=== PATIENT | male | born 1975 | race Hispanic/Latino ===

== ENCOUNTER 2018-02-19 21:56 | Inpatient (IN) | payer OTHER ==
[~2018-02-19] VITALS: Ht 182.9 cm; Wt 119.3 kg
[2018-02-19] MEDS ORDERED: ONDANSETRON HCL INJ 2 MG/ML VIAL IV STA (23:36)
[2018-02-19] MEDS ORDERED: MORPHINE SULFATE 5 MG/ML VIAL IV ONE (23:45)
[2018-02-19] MEDS ORDERED: SODIUM CHLORIDE 0.9% 1000ML 1,000 ML IV SCH (23:45)
[2018-02-20] VITALS (7 sets, daily range): BP systolic 108–134; BP diastolic 66–85
--- NOTE | 2018-02-20 01:40 | Diagnostic Imaging Report ---
EXAM: CT ABD/PEL WITH CONTRAST-HOPD DATE: 02/20/2018 12:00 AM INDICATION: Right abdominal and epigastric pain COMPARISON: None TECHNIQUE: The abdomen and pelvis were scanned using a multidetector helical scanner. Coronal and sagittal reformations were obtained. CT low dose techniques were utilized, as applicable. IV Contrast: 100 ml Isovue 300/370 FINDINGS: LOWER THORAX: Scattered linear atelectasis/scarring LIVER/BILIARY: Hepatic steatosis. No masses. No ductal dilatation. GALLBLADDER: Status post cholecystectomy SPLEEN: Unremarkable PANCREAS: Fatty atrophy. Marked inflammatory changes and peripancreatic fluid centered about the uncinate process and third portion of the duodenum extending down the right retroperitoneum into the pelvis ADRENALS: No nodules KIDNEYS: No suspicious renal masses. No hydronephrosis. GI TRACT: No wall thickening or evidence of obstruction. Normal appendix. VESSELS: Unremarkable PERITONEUM/RETROPERITONEUM: See above. No free air. LYMPH NODES: No lymphadenopathy REPRODUCTIVE ORGANS/BLADDER: Unremarkable SOFT TISSUES: Fat-containing periumbilical hernia. BONES: No suspicious bone lesions. IMPRESSION: Findings most likely secondary to acute pancreatitis centered about the uncinate process with free fluid extending down the right retroperitoneum. Signed by: Dr Dinah Walsh MD on 02/20/2018 1:37 AM
[2018-02-20] MEDS: SODIUM CHLORIDE 0.9% 1000ML 1,000 ML IV SCH ×8 (02:30→22:15)
[2018-02-20] MEDS ORDERED: INSULIN REGULAR, HUMAN 100 UNIT/1 ML 3ML VIAL SQ ONE (02:30)
[2018-02-20] MEDS ORDERED: DEXTROSE 50% SYRINGE 50 ML IV PRN (02:45)
[2018-02-20] MEDS ORDERED: ONDANSETRON HCL INJ 2 MG/ML VIAL IV PRN (02:45)
[2018-02-20] MEDS ORDERED: SODIUM CHLORIDE FLUSH 10 ML SYR INJ PRN (02:45)
--- OUTSIDE RECORDS SUMMARY | 2018-02-20 02:49 | XMS REPORT ---
Author [facility] Address Unknown Phone Unavailable Care Team Providers Care Casting Machine Set Up Operator Name Role Phone uRla PARISH Unavailable Unavailable Problems This patient has no known problems. Allergies, Adverse Reactions, Alerts This patient has no known allergies or adverse reactions. Medications This patient has no known medications. Results Test Description Test Time Test Comments Text Results Atomic Results Result Comments CT ABD/PEL WITH CONTRAST-HOPD 2018-02-20 01:32:00 [place] [address] Patient Name: LOUIE DILL MR #: [id number] : 1975 Age/Sex: 42/M Req #: [id number] Adm Physician: Ordered by: JENIFER PARISH MD Report #: [id number] Location: [facility] Room/Bed: Procedure: [id number] HOPD/CT ABD/PEL WITH CONTRAST-HOPD Exam Date: 02/20/18 Exam Time: 0105 REPORT STATUS: Signed EXAM: CT ABD/PEL WITH CONTRAST-HOPD DATE: 02/20/2018 12:00 AM INDICATION: Right abdominal and epigastric pain COMPARISON: None TECHNIQUE: The abdomen and pelvis were scanned using a multidetector helical scanner. Coronal and sagittal reformations were obtained. CT low dose techniques were utilized, as applicable. IV Contrast: 100 ml Isovue 300/370 FINDINGS: LOWER THORAX: Scattered linear atelectasis/scarring LIVER/BILIARY: Hepatic steatosis. No masses. No ductal dilatation. GALLBLADDER: Status post cholecystectomy SPLEEN: Unremarkable PANCREAS: Fatty atrophy. Marked inflammatory changes and peripancreatic fluid centered about the uncinate process and third portion of the duodenum extending down the right retroperitoneum into the pelvis ADRENALS: No nodules KIDNEYS: No suspicious renal masses. No hydronephrosis. GI TRACT: No wall thickening or evidence of obstruction. Normal appendix. VESSELS: Unremarkable PERITONEUM/RETROPERITONEUM: See above. No free air. LYMPH NODES: No lymphadenopathy REPRODUCTIVE ORGANS/BLADDER: Unremarkable SOFT TISSUES: Fat-containing periumbilical hernia. BONES: No suspicious bone lesions. IMPRESSION: Findings most likely secondary to acute pancreatitis centered about the uncinate process with free fluid extending down the right retroperitoneum. Signed by: Dr Judy Walsh MD on 02/20/2018 1:37 AM Dictated By: JUDY WALSH MD 6 Transcribed By: LAVONNE on 02/20/18136 COPY TO: JENIFER PARISH MD
[2018-02-20] MEDS ORDERED: MORPHINE SULFATE 2 MG/ML SYR IV PRN (03:00)
[2018-02-20] MEDS ORDERED: SODIUM CHLORIDE 0.9% 1000ML 1,000 ML IV ONE (03:00)
[2018-02-20] MEDS ORDERED: MORPHINE SULFATE INJ 4 MG/ML INJ IV ONE (03:00)
[2018-02-20] MEDS: INSULIN REGULAR, HUMAN 100 UNIT/1 ML 3ML VIAL SQ SCH ×4 (09:13→21:00)
[2018-02-20 09:22] LABS: BASOPHILS % 0.4 % (0.0-1.0); EOSINOPHILS # (AUTO) 0.2 (0.0-0.4); EOSINOPHILS % 3.4 % (0.0-6.0); HEMATOCRIT 38.3 % (38.2-49.6); HEMOGLOBIN 12.9 g/dL (14.0-18.0); LYMPHOCYTES # (AUTO) 1.7 (1.0-3.2); MEAN CORPUSCULAR HEMOGLOBIN 27.9 pg (28-32); MEAN CORPUSCULAR HGB CONC 33.7 g/dL (31-35); MEAN CORPUSCULAR VOLUME 82.9 fL (81-99); MONOCYTES # (AUTO) 0.5 (0.2-0.8); MONOCYTES % 7.3 % (4.4-11.3); NEUTROPHILS # (AUTO) 4.2 (2.1-6.9); NEUTROPHILS % 63.2 % (38.7-80.0); PLATELET COUNT 172 x10e3/uL (140-360); RED BLOOD COUNT 4.62 x10e6/uL (4.3-5.7); RED CELL DISTRIBUTION WIDTH 13.6 % (11.7-14.4)
[2018-02-20 09:35] LABS: ANION GAP 11.4 mmol/L (8-16); BLOOD UREA NITROGEN 8 mg/dL (7-26); BUN/CREATININE RATIO 10 (6-25); CALCIUM 9.1 mg/dL (8.4-10.2); CARBON DIOXIDE 27 mmol/L (22-29); CHLORIDE 99 mmol/L (98-107); CREATININE, SERUM 0.82 mg/dL (0.72-1.25); EST GLOMERULAR FILTRATION RATE > 60 ML/MIN (60-); GLUCOSE 247 mg/dL (74-118); MAGNESIUM 1.6 MG/DL (1.3-2.1); POTASSIUM 3.4 mmol/L (3.5-5.1); SODIUM 134 mmol/L (136-145)
[2018-02-20] MEDS: PANTOPRAZOLE SOD 40 MG TABEC PO SCH (09:45)
[2018-02-20 09:58] LABS: FREE T4 (FREE THYROXINE) 1.04 ng/dL (0.9-1.8)
[2018-02-20] MEDS ORDERED: MORPHINE SULFATE INJ 4 MG/ML INJ IV PRN (10:00)
[2018-02-20 10:24] LABS: B-TYPE NATRIURETIC PEPTIDE2 < 10.0 pg/mL (0-100)
[2018-02-20] MEDS: ACETAMINOPHEN 325 MG TAB PO PRN (16:25)
[2018-02-20 22:33] LABS: CLARITY,URINE CLEAR (CLEAR); COLOR,URINE YELLOW (YELLOW); LEUKOCYTE ESTERASE ,URINE NEGATIVE (NEGATIVE); NITRITE,URINE NEGATIVE (NEGATIVE); PROTEIN,URINE DIPSTICK 2+ (NEGATIVE)
[2018-02-20 22:34] LABS: BILIRUBIN,URINE NEGATIVE (NEGATIVE); KETONES,URINE 1+ (NEGATIVE); URINE UROBILINOGEN 1 mg/dL (0.2 - 1)
[2018-02-20 22:39] LABS: BACTERIA,URINE MANY /HPF; EPITHELIAL CELLS,URINE RARE /LPF; WBC,URINE (MAN) 0-5 /HPF (0-5)
[2018-02-21] VITALS (8 sets, daily range): BP systolic 109–134; BP diastolic 60–84
[2018-02-21] MEDS: SODIUM CHLORIDE 0.9% 1000ML 1,000 ML IV SCH ×4 (03:49→20:46)
[2018-02-21 05:23] LABS: BASOPHILS % 0.5 % (0.0-1.0); EOSINOPHILS # (AUTO) 0.2 (0.0-0.4); EOSINOPHILS % 3.3 % (0.0-6.0); HEMATOCRIT 38.7 % (38.2-49.6); HEMOGLOBIN 12.9 g/dL (14.0-18.0); LYMPHOCYTES # (AUTO) 1.7 (1.0-3.2); LYMPHOCYTES % 27.3 % (18.0-39.1); MEAN CORPUSCULAR HEMOGLOBIN 28.1 pg (28-32); MEAN CORPUSCULAR HGB CONC 33.3 g/dL (31-35); MEAN CORPUSCULAR VOLUME 84.3 fL (81-99); MONOCYTES # (AUTO) 0.5 (0.2-0.8); MONOCYTES % 7.1 % (4.4-11.3); NEUTROPHILS # (AUTO) 3.9 (2.1-6.9); NEUTROPHILS % 60.9 % (38.7-80.0); PLATELET COUNT 169 x10e3/uL (140-360); RED BLOOD COUNT 4.59 x10e6/uL (4.3-5.7); RED CELL DISTRIBUTION WIDTH 13.5 % (11.7-14.4)
[2018-02-21 05:41] LABS: ANION GAP 11.2 mmol/L (8-16); BLOOD UREA NITROGEN 6 mg/dL (7-26); BUN/CREATININE RATIO 8 (6-25); CALCIUM 8.9 mg/dL (8.4-10.2); CARBON DIOXIDE 25 mmol/L (22-29); CHLORIDE 102 mmol/L (98-107); CREATININE, SERUM 0.77 mg/dL (0.72-1.25); EST GLOMERULAR FILTRATION RATE > 60 ML/MIN (60-); GLUCOSE 178 mg/dL (74-118); LIPASE 93 U/L (8-78); MAGNESIUM 1.8 MG/DL (1.3-2.1); POTASSIUM 3.2 mmol/L (3.5-5.1); SODIUM 135 mmol/L (136-145)
[2018-02-21 06:37] LABS: CHOL/HDL RATIO 15.4 (3.9-4.7); CHOLESTEROL 262 MD/DL (0-199); HDL CHOLESTEROL 17 MG/DL (40-60); TRIGLYCERIDES 435 MG/DL (0-149)
[2018-02-21] MEDS: PANTOPRAZOLE SOD 40 MG TABEC PO SCH (09:54)
[2018-02-21] MEDS: INSULIN REGULAR, HUMAN 100 UNIT/1 ML 3ML VIAL SQ SCH ×4 (10:10→21:00)
[2018-02-21 10:27] LABS: OCCULT BLOOD STOOL NEGATIVE (NEGATIVE)
[2018-02-21 13:27] LABS: CLARITY,URINE SL CLOUDY (CLEAR); COLOR,URINE YELLOW (YELLOW); KETONES,URINE 1+ (NEGATIVE); LEUKOCYTE ESTERASE ,URINE NEGATIVE (NEGATIVE); NITRITE,URINE NEGATIVE (NEGATIVE); PROTEIN,URINE DIPSTICK NEGATIVE (NEGATIVE); URINE UROBILINOGEN 1 mg/dL (0.2 - 1)
[2018-02-21 13:28] LABS: BILIRUBIN,URINE NEGATIVE (NEGATIVE)
[2018-02-21 13:42] LABS: EPITHELIAL CELLS,URINE FEW /LPF; RBC,URINE 0-5 /HPF (0-5)
[2018-02-21 13:56] LABS: C DIFFICILE TOXIN A&B AMP PROB NEGATIVE (NEGATIVE)
[2018-02-21] MEDS: ACETAMINOPHEN 325 MG TAB PO PRN (15:47)
[2018-02-21] MEDS ORDERED: SIMETHICONE 80 MG CHEW PO PRN (18:45)
[2018-02-22] VITALS (8 sets, daily range): BP systolic 121–130; BP diastolic 62–84
[2018-02-22] MEDS: SODIUM CHLORIDE 0.9% 1000ML 1,000 ML IV SCH ×4 (01:45→23:15)
[2018-02-22 05:37] LABS: BASOPHILS % 0.5 % (0.0-1.0); EOSINOPHILS # (AUTO) 0.2 (0.0-0.4); EOSINOPHILS % 3.4 % (0.0-6.0); HEMATOCRIT 38.7 % (38.2-49.6); LYMPHOCYTES # (AUTO) 1.6 (1.0-3.2); LYMPHOCYTES % 24.8 % (18.0-39.1); MEAN CORPUSCULAR HEMOGLOBIN 27.9 pg (28-32); MEAN CORPUSCULAR HGB CONC 33.6 g/dL (31-35); MONOCYTES # (AUTO) 0.4 (0.2-0.8); MONOCYTES % 6.9 % (4.4-11.3); NEUTROPHILS % 63.4 % (38.7-80.0); PLATELET COUNT 192 x10e3/uL (140-360); RED BLOOD COUNT 4.66 x10e6/uL (4.3-5.7); RED CELL DISTRIBUTION WIDTH 13.4 % (11.7-14.4)
[2018-02-22 05:54] LABS: ANION GAP 14.3 mmol/L (8-16); BLOOD UREA NITROGEN 5 mg/dL (7-26); BUN/CREATININE RATIO 7 (6-25); CALCIUM 9.1 mg/dL (8.4-10.2); CARBON DIOXIDE 23 mmol/L (22-29); CHLORIDE 103 mmol/L (98-107); CREATININE, SERUM 0.74 mg/dL (0.72-1.25); EST GLOMERULAR FILTRATION RATE > 60 ML/MIN (60-); GLUCOSE 140 mg/dL (74-118); LIPASE 93 U/L (8-78); MAGNESIUM 1.7 MG/DL (1.3-2.1); POTASSIUM 3.3 mmol/L (3.5-5.1); SODIUM 137 mmol/L (136-145)
[2018-02-22] MEDS: INSULIN REGULAR, HUMAN 100 UNIT/1 ML 3ML VIAL SQ SCH ×4 (07:30→20:52)
[2018-02-22] MEDS: PANTOPRAZOLE SOD 40 MG TABEC PO SCH (08:50)
[2018-02-22] MEDS ORDERED: POTASSIUM CHLORIDE 20MEQ/100ML 100 ML IV ONE (12:15)
[2018-02-22] MEDS ORDERED: ACETAMINOPHEN 325 MG TAB PO PRN (12:30)
[2018-02-22] MEDS ORDERED: HYDRALAZINE HCL 20 MG/ML VIAL IV PRN (12:30)
[2018-02-22] MEDS: CEFTRIAXONE SOD 1 GM VIAL IV SCH (14:45)
[2018-02-23] VITALS: BP 135/82
[2018-02-23] MEDS: CEFTRIAXONE SOD 1 GM VIAL IV SCH ×2 (00:15→12:31)
[2018-02-23 04:00] VITALS: BP 125/73
[2018-02-23 04:21] LABS: BASOPHILS % 0.8 % (0.0-1.0); EOSINOPHILS # (AUTO) 0.2 (0.0-0.4); EOSINOPHILS % 4.1 % (0.0-6.0); HEMATOCRIT 38.1 % (38.2-49.6); HEMOGLOBIN 12.9 g/dL (14.0-18.0); LYMPHOCYTES # (AUTO) 1.7 (1.0-3.2); LYMPHOCYTES % 31.3 % (18.0-39.1); MEAN CORPUSCULAR HEMOGLOBIN 27.9 pg (28-32); MEAN CORPUSCULAR HGB CONC 33.9 g/dL (31-35); MEAN CORPUSCULAR VOLUME 82.3 fL (81-99); MONOCYTES # (AUTO) 0.4 (0.2-0.8); MONOCYTES % 7.2 % (4.4-11.3); NEUTROPHILS % 55.7 % (38.7-80.0); PLATELET COUNT 188 x10e3/uL (140-360); RED BLOOD COUNT 4.63 x10e6/uL (4.3-5.7); RED CELL DISTRIBUTION WIDTH 13.2 % (11.7-14.4)
[2018-02-23 04:41] LABS: ANION GAP 13.6 mmol/L (8-16); BLOOD UREA NITROGEN < 5 mg/dL (7-26); CALCIUM 9.3 mg/dL (8.4-10.2); CARBON DIOXIDE 25 mmol/L (22-29); CHLORIDE 105 mmol/L (98-107); CREATININE, SERUM 0.73 mg/dL (0.72-1.25); EST GLOMERULAR FILTRATION RATE > 60 ML/MIN (60-); GLUCOSE 140 mg/dL (74-118); MAGNESIUM 1.6 MG/DL (1.3-2.1); POTASSIUM 3.6 mmol/L (3.5-5.1); SODIUM 140 mmol/L (136-145)
[2018-02-23 04:42] LABS: BUN/CREATININE RATIO 7 (6-25)
[2018-02-23] MEDS: SODIUM CHLORIDE 0.9% 1000ML 1,000 ML IV SCH ×2 (05:30→08:45)
[2018-02-23] MEDS: INSULIN REGULAR, HUMAN 100 UNIT/1 ML 3ML VIAL SQ SCH ×2 (07:30→12:30)
[2018-02-23 08:00] VITALS: BP 132/75
[2018-02-23] MEDS: PANTOPRAZOLE SOD 40 MG TABEC PO SCH (08:45)
[2018-02-23 09:59] VITALS: BP 125/73
[2018-02-23] MEDS ORDERED: METFORMIN HCL500 MG PO (10:25)
[2018-02-23] MEDS ORDERED: GLIPIZIDE5 MG PO (10:25)
[2018-02-23 12:00] VITALS: BP 152/88
[2018-02-23 16:00] VITALS: BP 130/81
--- NOTE | 2018-02-24 03:25 | Discharge Summary ---
ADMISSION DIAGNOSES 1. Pancreatitis. 2. Gastroesophageal reflux disease. 3. Hematuria with dysuria. 4. Black stools. 5. Hyperglycemia without history of diabetes. 6. Obesity. 7. Tachycardia. DISCHARGE DIAGNOSES 1. Pancreatitis. 2. Gastroesophageal reflux disease. 3. Hematuria with dysuria. 4. Black stools. 5. Hyperglycemia without history of diabetes. 6. Obesity. 7. Tachycardia. 8. Type 2 diabetes. 9. Rule out Clostridium difficile. 10. Rule out gastrointestinal bleed. 11. Rule out urinary tract infection. HISTORY: The patient has a history of fatty liver, seasonal allergies, and GERD. PAST SURGICAL HISTORY: The patient has a surgical history of cholecystectomy, left inguinal hernia repair, abdominal hernia repair, left arm fracture repair, and tonsillectomy. FAMILY HISTORY: The patient's father had diabetes. SOCIAL HISTORY: The patient denies tobacco, alcohol and illicit drug use. HOSPITAL COURSE: A 42-year-old male complains of epigastric right upper quadrant and right lower quadrant abdominal pain that began on . He also complains of testicular pain and diarrhea, which he says was black. Pain is better with stretching and worsened by leaning forward. He had associated nausea and subjective fever and chills. His testicular pain resolved on Sunday after urinating. On admission, the patient was started on IV fluids, Zofran, and pain medicines. His lipase was found to be elevated at 83. GI was consulted. The patient had a CT of the abdomen that showed findings most likely secondary to acute pancreatitis centered around the uncinate process and free fluid extending down into the right retroperitoneum. The patient had a urine culture come back positive for gram-negative bacillus and enterococcus. A repeat culture was done, which was negative. The patient was started on Rocephin and it was discontinued with the repeat culture. The patient's stool was negative for blood and negative for C. diff. The patient's A1c came back at 10.5, although he denies diabetes history. The patient was started on sliding scale insulin. As the lipase normalized, the patient was started on IV fluids, then full liquid diet and regular diet, all of which he tolerated well. The patient was discharged home with glipizide and metformin. He was instructed to follow up with primary care in 1 to 2 weeks and get a repeat A1c in 3 months with his primary care doctor. He was advised to follow a diabetic diet and dietary restrictions were discussed. The patient understands discharge instructions and agrees to plan. The patient is afebrile. Vital signs are stable. Dictated by: Patience Tapia NP NYLA PETERSON MD Job#: [id number] GAUziel
== END 2018-02-23 18:00 | disposition home or self-care (01) | DRG 439 ==
LOC: FSED 21:56 → ERHOLD 02-20 02:46 → MED/SURG2 02-20 04:22
PROVIDERS: ADMIT Internal Medicine; ATTEND Internal Medicine
DX: K85.90 Acute pancreatitis without necrosis or infection, unspecified (principal); N39.0 Urinary tract infection, site not specified; R31.29 Other microscopic hematuria; K75.9 Inflammatory liver disease, unspecified; K21.9 Gastro-esophageal reflux disease without esophagitis; E11.65 Type 2 diabetes mellitus with hyperglycemia; K76.0 Fatty (change of) liver, not elsewhere classified; J30.2 Other seasonal allergic rhinitis; Z83.3 Family history of diabetes mellitus; E66.9 Obesity, unspecified; R00.0 Tachycardia, unspecified; Z68.37 Body mass index [BMI] 37.0-37.9, adult; R19.7 Diarrhea, unspecified; B95.2 Enterococcus as the cause of diseases classified elsewhere; B96.89 Other specified bacterial agents as the cause of diseases classified elsewhere; E87.6 Hypokalemia
CPT/HCPCS: 36415; 74177; 80048; 80053; 80061; 80076; 80307; 81001; 81003; 82270; 82948; 83036; 83690; 83735; 83880; 84439; 84443; 85025; 87086; 87186; 87493; 93005; 96361; 99284; J0696; J3480; J7030

== ENCOUNTER → 2018-05-30 | Day surgery (SDC) | payer OTHER ==
[~2018-05-30] MED LIST: FENTANYL CITRATE/PF 100MCG/2 ML INJ ONE; FLUTICASONE PRO16 GM; GLIPIZIDE5 MG PO; METFORMIN HCL500 MG PO; MIDAZOLAM HCL 2 MG/2 ML VIAL ONE; PROPOFOL IV EMULSION 10 MG/ML 50 ML VIAL ONE; ZYRTEC10 MG PO
[2018-05-30 12:20] VITALS: BP 116/73
--- NOTE | 2018-05-30 14:25 | Operative Report ---
DATE OF PROCEDURE: May 30, 2018 REFERRING PHYSICIAN: Dr. Pj Brennan. PROCEDURE PERFORMED: Esophagogastroduodenoscopy with biopsies. INDICATIONS FOR PROCEDURE: Heartburn indigestion, bloating. MEDICATION: Patient was done under MAC. Please see anesthesiologist's note. PROCEDURE: With the patient in the left lateral decubitus position, the flexible fiberoptic Olympus gastroscope was introduced into the esophagus under direct visualization without any difficulty. There was some patchy erythema noted in the distal esophagus. The scope was then advanced with ease into the stomach. Mucosa overlying the antrum and the body revealed some patchy erythema and moderate edema, and biopsies were obtained and sent to stain for H. pylori. A single minute polyp was noted in the midbody of the stomach along the greater curvature, and that was partially excised with the cold biopsy forceps. Pylorus was of normal contour and shape, was intubated with ease, and the scope was advanced all the way to the 2nd portion of the duodenum. The scope was then withdrawn slowly, and there was a ? prominent accessory papilla proximal to the ampulla of Vater, and that was biopsied. Biopsies also were obtained from the 2nd portion as well as the duodenal bulb to rule out sprue. The scope was then withdrawn back into the stomach and retroflexed, and mucosa overlying the fundus and the cardia appeared to be within normal limits. The scope was then straightened out. It was subsequently withdrawn. Patient tolerated the procedure well. IMPRESSION: 1. Distal esophagitis. 2. Gastritis, biopsied. Biopsies sent to stain for H. pylori. 3. Gastric polyp midbody greater curvature partially excised with the cold biopsy forceps. 4. Rule out sprue. 5. ? Prominent accessory papilla 2nd portion duodenum biopsied. PLAN: Follow up histology. Initiate Protonix 40 mg 1 p.o. q.a.m. a.c. Job#: [id number] EV cc:PJ BRENNAN MD
== END | disposition home or self-care (01) ==
LOC: OR 10:00
PROVIDERS: ATTEND Internal Medicine Gastroenterology
DX: K29.70 Gastritis, unspecified, without bleeding (principal); K31.7 Polyp of stomach and duodenum; K20.9 Esophagitis, unspecified; K21.9 Gastro-esophageal reflux disease without esophagitis; K44.9 Diaphragmatic hernia without obstruction or gangrene; J30.2 Other seasonal allergic rhinitis; E11.9 Type 2 diabetes mellitus without complications; R03.0 Elevated blood-pressure reading, without diagnosis of hypertension; Z01.810 Encounter for preprocedural cardiovascular examination; Z79.84 Long term (current) use of oral hypoglycemic drugs; Z68.38 Body mass index [BMI] 38.0-38.9, adult
CPT/HCPCS: 36415; 43239; 82948; 93005; J2250; J2704

== ENCOUNTER 2020-06-01 01:12 | Inpatient (IN) | payer OTHER ==
[~2020-06-01] VITALS: Ht 180.3 cm; Wt 116.6 kg
[~2020-06-01 01:12] MED LIST changes: -FENTANYL CITRATE/PF 100MCG/2 ML INJ ONE; -MIDAZOLAM HCL 2 MG/2 ML VIAL ONE; -PROPOFOL IV EMULSION 10 MG/ML 50 ML VIAL ONE
[2020-06-01] MEDS ORDERED: SODIUM CHLORIDE 0.9% 1000ML 1,000 ML IV STA (01:18)
[2020-06-01] MEDS ORDERED: FAMOTIDINE 20 MG/2 ML VIAL IV ONE ×2 (01:30→02:40)
[2020-06-01] MEDS ORDERED: PROMETHAZINE 25MG/ NS 50ML (IV) IV ONE (01:30)
[2020-06-01] MEDS ORDERED: KETOROLAC TROMETHAMINE 30 MG/ML VIAL IV ONE (01:30)
[2020-06-01] MEDS ORDERED: SODIUM CHLORIDE 0.9% 50ML 50 ML ONE ×3 (02:06→13:12)
[2020-06-01] MEDS ORDERED: IOPAMIDOL 370 MG/ML 200 ML INFUS..BTL INJ ONE (02:07)
[2020-06-01] MEDS ORDERED: KETOROLAC TROMETHAMINE 30 MG/ML VIAL ONE (02:24)
[2020-06-01] MEDS ORDERED: SODIUM CHLORIDE 0.9% 1000ML 1,000 ML ONE ×2 (02:25→05:32)
[2020-06-01] MEDS ORDERED: PROMETHAZINE HCL (IM) 25 MG/ML VIAL IM ONE (02:25)
[2020-06-01 04:11] LABS: ALBUMIN 3.6 g/dL (3.5-5.0); BILIRUBIN,DIRECT 1.3 mg/dL (0.0-0.5)
[2020-06-01] MEDS ORDERED: PROMETHAZINE 25MG/ NS 50ML (IV) IV PRN (05:15)
[2020-06-01] MEDS ORDERED: DIPHENHYDRAMINE HCL INJ 50 MG/ML VIAL IV PRN (05:15)
[2020-06-01] MEDS ORDERED: PANTOPRAZOLE 40 MG 10ML VIAL ONE (05:32)
[2020-06-01] MEDS ORDERED: PIPER-TAZ 3.375 GM 50 ML ONE (05:32)
[2020-06-01] MEDS ORDERED: DEXTROSE 50% SYRINGE 50 ML IV PRN (05:45)
[2020-06-01] MEDS: PANTOPRAZOLE 40 MG 10ML VIAL IV SCH (05:50)
[2020-06-01] MEDS: SODIUM CHLORIDE 0.9% 1000ML 1,000 ML IV SCH ×3 (05:50→21:15)
[2020-06-01] MEDS: PIPER-TAZ 3.375 GM / NS 50ML IV SCH ×3 (05:55→22:00)
[2020-06-01] MEDS: INSULIN REGULAR, HUMAN 100 UNIT/1 ML 3ML VIAL SQ SCH ×4 (09:00→21:00)
[2020-06-01] MEDS ORDERED: ACETAMINOPHEN 325 MG TAB PO ONE (10:30)
[2020-06-01] MEDS ORDERED: ACETAMINOPHEN 325 MG TAB ONE (10:30)
[2020-06-01] MEDS ORDERED: GADOBENATE DIMEGLUMINE 1 ML IV ONE (13:12)
[2020-06-01 13:39] VITALS: BP 137/94
[2020-06-01] MEDS ORDERED: CLARITIN-D 241 EACH PO (13:56)
[2020-06-01] MEDS: MORPHINE SULFATE INJ 4 MG/ML INJ 1ML IV PRN (14:05)
[2020-06-01 14:36] VITALS: BP 137/94
[2020-06-01 14:43] VITALS: BP 137/94
[2020-06-01 16:00] VITALS: BP 123/80
[2020-06-01] MEDS ORDERED: HYDRALAZINE HCL 20 MG/ML VIAL IV PRN (16:30)
[2020-06-01] MEDS ORDERED: ONDANSETRON HCL INJ 2MG/ML 2ML 2 MG/ML VIAL IV PRN (16:30)
[2020-06-01] MEDS ORDERED: ACETAMINOPHEN 325 MG TAB PO PRN (16:30)
[2020-06-01] MEDS ORDERED: TEMAZEPAM 7.5 MG CAP PO PRN (16:30)
[2020-06-01] MEDS: FAMOTIDINE 20 MG TAB PO SCH (16:57)
[2020-06-01] MEDS ORDERED: LORATADINE/PSEUDOEPHEDRINE 24 HR SR TAB PO PRN (17:00)
[2020-06-01] MEDS ORDERED: FLUTICASONE PROPIONATE NASAL SPRAY NS PRN (17:00)
[2020-06-01] MEDS ORDERED: CETIRIZINE HCL PO PRN (17:00)
[2020-06-01 17:44] LABS: PHOSPHORUS 3.2 MG/DL (2.3-4.7)
[2020-06-01 17:53] LABS: MAGNESIUM 5.7 MG/DL (1.3-2.1)
[2020-06-01] MEDS ORDERED: INFLUENZA VIRUS VAC SPLIT INJ 0.5 ML SYR IM ONE (18:00)
[2020-06-01 18:05] LABS: THYROID STIMULATING HORMONE 0.941 uIU/mL (0.350-4.940)
[2020-06-01 19:45] VITALS: BP 123/87
[2020-06-01 20:11] VITALS: BP 123/80
[2020-06-01] MEDS ORDERED: TEMAZEPAM 15 MG CAP PO PRN (21:00)
[2020-06-02] VITALS (8 sets, daily range): BP systolic 110–135; BP diastolic 68–97
[2020-06-02] MEDS: SODIUM CHLORIDE 0.9% 1000ML 1,000 ML IV SCH ×2 (05:53→13:15)
[2020-06-02] MEDS: PIPER-TAZ 3.375 GM / NS 50ML IV SCH ×3 (05:54→21:34)
[2020-06-02 06:11] LABS: BASOPHILS % 0.5 % (0.0-1.0); EOSINOPHILS # (AUTO) 0.1 (0.0-0.4); EOSINOPHILS % 1.6 % (0.0-6.0); HEMATOCRIT 40.3 % (38.2-49.6); HEMOGLOBIN 13.6 g/dL (14.0-18.0); LYMPHOCYTES # (AUTO) 1.2 (1.0-3.2); LYMPHOCYTES % 27.7 % (18.0-39.1); MEAN CORPUSCULAR HEMOGLOBIN 27.8 pg (28-32); MEAN CORPUSCULAR HGB CONC 33.7 g/dL (31-35); MEAN CORPUSCULAR VOLUME 82.2 fL (81-99); MONOCYTES # (AUTO) 0.3 (0.2-0.8); MONOCYTES % 6.7 % (4.4-11.3); NEUTROPHILS # (AUTO) 2.7 (2.1-6.9); NEUTROPHILS % 63.3 % (38.7-80.0); PLATELET COUNT 141 x10e3/uL (140-360); RED CELL DISTRIBUTION WIDTH 13.2 % (11.7-14.4)
[2020-06-02 06:36] LABS: ALANINE AMINOTRANSFERASE 839 IU/L (0-55); ALBUMIN 3.2 g/dL (3.5-5.0); ALBUMIN/GLOBULIN RATIO 0.9 (0.8-2.0); ALKALINE PHOSPHATASE 179 IU/L (40-150); ANION GAP 14.3 mmol/L (8-16); BLOOD UREA NITROGEN 5 mg/dL (7-26); BUN/CREATININE RATIO 6 (6-25); CALCIUM 8.2 mg/dL (8.4-10.2); CARBON DIOXIDE 23 mmol/L (22-29); CHLORIDE 103 mmol/L (98-107); CREATININE, SERUM 0.77 mg/dL (0.72-1.25); EST GLOMERULAR FILTRATION RATE > 60 ML/MIN (60-); GLUCOSE 291 mg/dL (74-118); POTASSIUM 3.3 mmol/L (3.5-5.1); SODIUM 137 mmol/L (136-145)
[2020-06-02] MEDS: FAMOTIDINE 20 MG TAB PO SCH ×2 (07:30→16:39)
[2020-06-02] MEDS: INSULIN REGULAR, HUMAN 100 UNIT/1 ML 3ML VIAL SQ SCH ×4 (07:30→21:32)
[2020-06-02] MEDS: PANTOPRAZOLE 40 MG 10ML VIAL IV SCH (09:14)
[2020-06-02] MEDS ORDERED: MAGNESIUM SULFATE 2GM/50ML 50 ML IV ONE (09:30)
[2020-06-02] MEDS ORDERED: IOPAMIDOL 300MG/ML 50ML INFUS..BTL IV ONE (11:36)
[2020-06-02] MEDS ORDERED: POTASSIUM CHLORIDE 20 MEQ TAB CR PO ONE (11:45)
[2020-06-02] MEDS ORDERED: LACTATED RINGER'S 1,000 ML INJ SCH (12:15)
[2020-06-02] MEDS ORDERED: INDOMETHACIN 50 MG SUPP.RECT RC ONE (12:59)
[2020-06-02] MEDS ORDERED: MIDAZOLAM HCL 2 MG/2 ML VIAL ONE (13:21)
[2020-06-02] MEDS ORDERED: FENTANYL CITRATE/PF 100MCG/2 ML INJ ONE (13:21)
[2020-06-02] MEDS ORDERED: DEXAMETHASONE SOD PHOS INJ 4 MG/ML VIAL ONE (14:01)
[2020-06-02] MEDS ORDERED: PROPOFOL IV EMULSION 10 MG/ML 20 ML VIAL ONE (19:26)
[2020-06-02] MEDS ORDERED: LIDOCAINE HCL 2% LOCAL INJ 5 ML SDV VIAL INJ ONE (19:26)
[2020-06-03] VITALS (7 sets, daily range): BP systolic 119–136; BP diastolic 80–88
[2020-06-03] MEDS: SODIUM CHLORIDE 0.9% 1000ML 1,000 ML IV SCH ×4 (00:34→21:21)
[2020-06-03] MEDS: PIPER-TAZ 3.375 GM / NS 50ML IV SCH ×3 (06:15→21:27)
[2020-06-03 06:32] LABS: BASOPHILS % 0.4 % (0.0-1.0); EOSINOPHILS # (AUTO) 0.1 (0.0-0.4); EOSINOPHILS % 1.2 % (0.0-6.0); HEMATOCRIT 39.7 % (38.2-49.6); HEMOGLOBIN 13.2 g/dL (14.0-18.0); LYMPHOCYTES # (AUTO) 1.4 (1.0-3.2); LYMPHOCYTES % 28.5 % (18.0-39.1); MEAN CORPUSCULAR HEMOGLOBIN 27.6 pg (28-32); MEAN CORPUSCULAR HGB CONC 33.2 g/dL (31-35); MEAN CORPUSCULAR VOLUME 82.9 fL (81-99); MONOCYTES # (AUTO) 0.4 (0.2-0.8); MONOCYTES % 8.3 % (4.4-11.3); NEUTROPHILS % 61.2 % (38.7-80.0); PLATELET COUNT 146 x10e3/uL (140-360); RED BLOOD COUNT 4.79 x10e6/uL (4.3-5.7); RED CELL DISTRIBUTION WIDTH 13.2 % (11.7-14.4)
[2020-06-03 07:19] LABS: ALANINE AMINOTRANSFERASE 665 IU/L (0-55); ALBUMIN 3.2 g/dL (3.5-5.0); ALBUMIN/GLOBULIN RATIO 0.9 (0.8-2.0); ALKALINE PHOSPHATASE 156 IU/L (40-150); ANION GAP 13.6 mmol/L (8-16); BLOOD UREA NITROGEN 6 mg/dL (7-26); BUN/CREATININE RATIO 8 (6-25); CALCIUM 8.5 mg/dL (8.4-10.2); CARBON DIOXIDE 24 mmol/L (22-29); CHLORIDE 106 mmol/L (98-107); CREATININE, SERUM 0.74 mg/dL (0.72-1.25); EST GLOMERULAR FILTRATION RATE > 60 ML/MIN (60-); GLUCOSE 160 mg/dL (74-118); POTASSIUM 3.6 mmol/L (3.5-5.1); SODIUM 140 mmol/L (136-145)
[2020-06-03] MEDS: INSULIN REGULAR, HUMAN 100 UNIT/1 ML 3ML VIAL SQ SCH ×5 (07:30→21:00)
[2020-06-03] MEDS: FAMOTIDINE 20 MG TAB PO SCH ×2 (07:30→15:45)
[2020-06-03] MEDS: PANTOPRAZOLE 40 MG 10ML VIAL IV SCH (08:05)
[2020-06-03] MEDS ORDERED: BUPIVACAINE HCL 0.5% INJ 30 ML VIAL INJ ONE (09:57)
[2020-06-03] MEDS ORDERED: ONDANSETRON HCL INJ 2MG/ML 2ML 2 MG/ML VIAL IV PRN (12:15)
[2020-06-03] MEDS ORDERED: FENTANYL CITRATE/PF 100MCG/2 ML INJ ONE (13:27)
[2020-06-03] MEDS ORDERED: MIDAZOLAM HCL 2 MG/2 ML VIAL ONE (13:27)
[2020-06-03] MEDS: HYDROCODONE/APAP 5MG-325MG TAB PO PRN (15:06)
[2020-06-03] MEDS ORDERED: GLYCOPYRROLATE INJ 0.2 MG/ML VIAL ONE (19:35)
[2020-06-03] MEDS ORDERED: KETOROLAC TROMETHAMINE 30 MG/ML VIAL ONE (19:35)
[2020-06-03] MEDS ORDERED: SEVOFLURANE INHAL SOLN 250 ML PEN BTL ONE (19:35)
[2020-06-03] MEDS ORDERED: LIDOCAINE HCL 2% LOCAL INJ 5 ML SDV VIAL INJ ONE (19:35)
[2020-06-03] MEDS ORDERED: PROPOFOL IV EMULSION 10 MG/ML 20 ML VIAL ONE (19:35)
[2020-06-03] MEDS ORDERED: NEOSTIGMINE 1 MG/ML 10ML VIAL ONE (19:35)
[2020-06-03] MEDS ORDERED: ROCURONIUM BROMIDE 10 MG/ML 5ML VIAL IV ONE (19:35)
[2020-06-03] MEDS ORDERED: ONDANSETRON HCL INJ 2MG/ML 2ML 2 MG/ML VIAL ONE (19:35)
[2020-06-03] MEDS ORDERED: SUCCINYLCHOLINE CHLORIDE 20 MG/ML 10ML VIAL ONE (19:35)
[2020-06-03] MEDS ORDERED: DEXAMETHASONE SOD PHOS INJ 4 MG/ML VIAL ONE (19:35)
[2020-06-04] VITALS: BP 122/85
[2020-06-04 04:00] VITALS: BP 122/78
[2020-06-04] MEDS: PIPER-TAZ 3.375 GM / NS 50ML IV SCH ×2 (05:49→13:00)
[2020-06-04] MEDS: MORPHINE SULFATE INJ 4 MG/ML INJ 1ML IV PRN ×2 (05:50→06:46)
[2020-06-04 06:41] LABS: BASOPHILS % 0.6 % (0.0-1.0); EOSINOPHILS # (AUTO) 0.1 (0.0-0.4); EOSINOPHILS % 2.2 % (0.0-6.0); HEMATOCRIT 40.5 % (38.2-49.6); HEMOGLOBIN 13.1 g/dL (14.0-18.0); LYMPHOCYTES # (AUTO) 2.2 (1.0-3.2); LYMPHOCYTES % 35.2 % (18.0-39.1); MEAN CORPUSCULAR HEMOGLOBIN 27.8 pg (28-32); MEAN CORPUSCULAR HGB CONC 32.3 g/dL (31-35); MEAN CORPUSCULAR VOLUME 85.8 fL (81-99); MONOCYTES # (AUTO) 0.4 (0.2-0.8); MONOCYTES % 6.9 % (4.4-11.3); NEUTROPHILS # (AUTO) 3.4 (2.1-6.9); NEUTROPHILS % 54.6 % (38.7-80.0); PLATELET COUNT 156 x10e3/uL (140-360); RED BLOOD COUNT 4.72 x10e6/uL (4.3-5.7); RED CELL DISTRIBUTION WIDTH 13.4 % (11.7-14.4)
[2020-06-04] MEDS ORDERED: TYLENOL # 31 EA PO (06:54)
[2020-06-04 07:23] LABS: ALANINE AMINOTRANSFERASE 451 IU/L (0-55); ALBUMIN 3.2 g/dL (3.5-5.0); ALKALINE PHOSPHATASE 133 IU/L (40-150); ANION GAP 14.9 mmol/L (8-16); BLOOD UREA NITROGEN 9 mg/dL (7-26); BUN/CREATININE RATIO 11 (6-25); CALCIUM 8.3 mg/dL (8.4-10.2); CARBON DIOXIDE 25 mmol/L (22-29); CHLORIDE 105 mmol/L (98-107); CREATININE, SERUM 0.83 mg/dL (0.72-1.25); EST GLOMERULAR FILTRATION RATE > 60 ML/MIN (60-); GLUCOSE 164 mg/dL (74-118); POTASSIUM 3.9 mmol/L (3.5-5.1); SODIUM 141 mmol/L (136-145)
[2020-06-04] MEDS: PANTOPRAZOLE 40 MG 10ML VIAL IV SCH (08:25)
[2020-06-04] MEDS: FAMOTIDINE 20 MG TAB PO SCH ×2 (08:25→15:30)
[2020-06-04] MEDS: INSULIN REGULAR, HUMAN 100 UNIT/1 ML 3ML VIAL SQ SCH ×3 (08:30→15:30)
[2020-06-04 09:10] VITALS: BP 130/91
[2020-06-04 09:11] VITALS: BP 131/91
[2020-06-04] MEDS: SODIUM CHLORIDE 0.9% 1000ML 1,000 ML IV SCH (09:48)
[2020-06-04] MEDS: HYDROCODONE/APAP 5MG-325MG TAB PO PRN (09:49)
[2020-06-04] MEDS ORDERED: ONDANSETRON HCL 4 MG ORAL DISINTEGRATING TAB PO PRN (10:15)
[2020-06-04 12:05] VITALS: BP 128/83
[2020-06-04 15:37] VITALS: BP 112/81
[2020-06-05] MEDS ORDERED: PANTOPRAZOLE SOD 40 MG TABEC PO SCH (07:30)
== END 2020-06-04 16:40 | disposition home or self-care (01) | DRG 355 ==
LOC: FSED 01:18 → ERHOLD 05:20 → MED/SURG3 13:30 → OBSVTOIN 06-02 10:16
PROVIDERS: ADMIT Internal Medicine; ATTEND Internal Medicine
PROC: BF111ZZ Fluoroscopy of Biliary and Pancreatic Ducts using Low Osmolar Contrast (ICD-10-PCS; 2020-06-02)
PROC: 0F798ZZ Dilation of Common Bile Duct, Via Natural or Artificial Opening Endoscopic (ICD-10-PCS; principal; 2020-06-02 10:00)
PROC: 0WQF0ZZ Repair Abdominal Wall, Open Approach (ICD-10-PCS; 2020-06-03)
DX: K42.0 Umbilical hernia with obstruction, without gangrene (principal); R16.0 Hepatomegaly, not elsewhere classified; Z90.49 Acquired absence of other specified parts of digestive tract; K76.0 Fatty (change of) liver, not elsewhere classified; E88.89 Other specified metabolic disorders; K57.30 Diverticulosis of large intestine without perforation or abscess without bleeding; E87.6 Hypokalemia; E11.65 Type 2 diabetes mellitus with hyperglycemia; K21.9 Gastro-esophageal reflux disease without esophagitis; Z83.42 Family history of familial hypercholesterolemia; Z83.3 Family history of diabetes mellitus; N47.1 Phimosis; K80.50 Calculus of bile duct without cholangitis or cholecystitis without obstruction; N47.6 Balanoposthitis; D72.819 Decreased white blood cell count, unspecified; E83.51 Hypocalcemia; E83.41 Hypermagnesemia; E66.9 Obesity, unspecified; D64.9 Anemia, unspecified; Z68.35 Body mass index [BMI] 35.0-35.9, adult
CPT/HCPCS: 36415; 43260; 74177; 74183; 74328; 80048; 80053; 80076; 81003; 82948; 83036; 83690; 83735; 84100; 84443; 85025; 96361; 99284; G0378; J0330; J1100; J1817; J1885; J2001; J2250; J2270; J2405; J2543; J2550; J2710; J3010; J3475; J7030; Q9967; U0002